=== PATIENT | male | born 1965 | race Caucasian/White ===

== ENCOUNTER → 2018-04-23 08:44 | Outpatient (CLI) | payer OTHER, SELFPAY ==
[2018-04-23 09:41] LABS: Hematocrit 47.5 % (40-54); Hemoglobin 15.4 g/dl (13.0-16.5); Mean Corp Hgb Conc 32.4 g/gl (32-36); Mean Corpuscular Volume 92.4 fL (80-94); Mean Platelet Vol. 9.6 fl (6.2-12.0); Platelet Count 274 K/mm3 (150-450); RBC Distribution Width CV 13.1 % (11.6-14.6); RBC Distribution Width SD 44.1 fl (35.1-43.9); Red Blood Count 5.14 M/mm3 (4.6-6.2)
[2018-04-23 09:42] LABS: Scan Indicated on CBC? Y/N NO
[2018-04-23 09:53] LABS: Cholesterol 251 mg/dL (200); High Density Lipoprotein 73 mg/dL; PSA,Total - Annual Screen 1.57 ng/mL (0.00-4.00); Triglycerides 139 mg/dL; Very Low Density Lipoprotein 28 mg/dL (5-40)
== END ==
PROVIDERS: Family Provider Family Medicine; PCP Family Medicine; Visit Provider Family Medicine
DX: N40.0 Benign prostatic hyperplasia without lower urinary tract symptoms (principal); E78.00 Pure hypercholesterolemia, unspecified
CPT/HCPCS: 36415; 80061; 84153; 85027; G0103

== ENCOUNTER 2018-06-05 08:33 | Day surgery (SDC) | payer OTHER, SELFPAY ==
[2018-06-05 09:02] VITALS: BP 135/88; PULSE 61; RESP 14; TEMP 36; O2SAT 99; BMI 28.5
--- NOTE | 2018-06-05 09:56 | PCM.OPRPT ---
Problem List (1) Screening for intestinal cancer Status: Acute Report of Operation Date of Procedure: 06/05/18 Pre-Operative Diagnosis: Screening for intestinal cancer Post-Operative Diagnosis: Sigmoid diverticulosis Surgery/Procedure Performed:: Colonoscopy Description of Surgical Findings:: Timeout and informed consent was obtained. 52-year-old gent was taken to the endoscopy suite. He underwent monitored anesthesia care. Year ago he had an upper GI bleed. He did have an attempted a colonoscopy but bowel prep was too poor for visualization. He presents at this time for planned screening examination. Digital rectal exam performed. Grade 2 internal and external hemorrhoids. 2+ smooth prostate. Flexible colonoscope inserted the rectum advanced was somewhat tortuous sigmoid colon extensively involved with diverticulosis. The scope was advanced to the descending colon transverse colon and over to the ascending colon. Transabdominal pressure was required to get the scope to go to the cecum. The cecum however was well achieved. The bowel prep was good. Excess fluid was aspirated free. The scope was withdrawn from the ascending and transverse and descending colon. Diverticulosis of the sigmoid colon noted. No evidence of acute inflammation. The scope was withdrawn to the rectum retroflex anorectal verge and grade 2 internal hemorrhoids noted. No active bleeding. Excess fluid and air was aspirated free the procedure was completed with the patient tolerating it well. Impression Sigmoid diverticulosis. No evidence for active disease. The patient had a previous attempted colonoscopy 1 year prior. Next recommended colonoscopy is in 10 years for screening. Cc: Dr. ROSITA Max Scope was inserted at 1002. The cecum was reached at 1010. The procedure was completed at 1018. José Miguel Medley M.D., F.A.C.S. Type of Anesthesia:: MAC Anesthesiologist: Mauro Diaz
--- NOTE | 2018-06-05 09:57 | PCM.HP.STD ---
Problem List (1) Screening for intestinal cancer Status: Acute History of Present Illness Date of Admission: 06/05/18 The patient is a 52 year old M who presented with GI bleeding approximately 1 year ago. He had a upper endoscopy demonstrating bleeding peptic ulcer which was remedied. He had a colonoscopy at that time but the bowel prep was too poor for adequate visualization. It is for this reason the patient presents today via our open access program to proceed with a colonoscopy for purposes of screening. He has no particular complaints and he is resumed having good health Past Medical History Allergies No Known Allergies Allergy (Verified 06/02/18 10:28) Home Medications: Ambulatory Orders Medication Instructions Recorded NK [NK] 06/02/18 Smoking Status: Never smoker - *Family History Sibling History Items: No pertinent history Review of Systems Constitutional: Denies: Anorexia HEENT: Denies: Difficulty Hearing Cardiovascular: Denies: Chest Pain, Claudication, Chest Pressure Respiratory: Denies: Cough Gastrointestinal: Denies: Abdominal Pain Neurological: Denies: Balance problems Psychiatric: Denies: Anxiety Endocrine: Denies: Change in Body Habitus VTE Information - Inpt Only VTE Present on Admission: No Patient Problems: Active and Suspected Problems Screening for intestinal cancer (Acute) - Physical Exam General: Alert, Oriented x3, Cooperative, No apparent distress HEENT: Atraumatic Oral: Moist Mucosa Neck: Supple Lungs: Clear to auscultation Cardiovascular: Regular rate, Regular Rhythm Abdomen: Bowel Sounds Present, Soft, Non Tender, Non-Distended Extremities: No clubbing Musculoskeletal: No Tenderness to Palpation of Joints or Extremities Neurological: Cranial nerves II-XII grossly intact Vital Signs Temp Pulse Resp BP Pulse Ox 96.8 F L 61 14 135/88 H 99 06/05/18 09:02 06/05/18 09:02 06/05/18 09:02 06/05/18 09:02 06/05/18 09:02 Oxygen Delivery Method Room Air Weight: 199 lb 1.239 oz Body Mass Index (BMI) 28.5 Assessment/Plan All Active Problems Screening for intestinal cancer (Acute) Leukocytosis, unspecified (Acute) GI bleed (Acute) I recommend a colonoscopy with possible biopsy or polypectomy is indicated. The patient has had an opportunity to ask and have questions answered. We will proceed was noted. José Miguel Medley M.D., F.A.C.S.
[2018-06-05 10:26] VITALS: BP 106/56; BP 135/88; PULSE 71; RESP 14; TEMP 36.5; O2SAT 96
[2018-06-05 10:30] VITALS: BP 112/74; BP 135/88; PULSE 69; RESP 16; O2SAT 97
[2018-06-05 10:35] VITALS: BP 115/63; BP 135/88; PULSE 62; RESP 16; O2SAT 96
[2018-06-05 10:40] VITALS: BP 120/78; BP 135/88; PULSE 55; RESP 16; TEMP 36.7; O2SAT 98
[2018-06-05 10:47] VITALS: BP 135/88
== END 2018-06-05 11:02 | disposition home or self-care (01) ==
LOC: EN 08:34 → AC 08:45
PROVIDERS: Family Provider Family Medicine; PCP Family Medicine; Visit Provider Surgery
PROC: 0DJD8ZZ Inspection of Lower Intestinal Tract, Via Natural or Artificial Opening Endoscopic (ICD-10-PCS; CPT 45378; principal; 2018-06-05 09:55)
DX: Z12.11 Encounter for screening for malignant neoplasm of colon (principal); K57.30 Diverticulosis of large intestine without perforation or abscess without bleeding; K64.8 Other hemorrhoids; K64.4 Residual hemorrhoidal skin tags; Z87.19 Personal history of other diseases of the digestive system
CPT/HCPCS: 45378; J7120

== ENCOUNTER → 2019-04-06 | Outpatient (CLI) | payer OTHER, SELFPAY ==
[2019-04-06 07:39] LABS: Anion Gap 4 (5-15); BUN 14 mg/dL (7-18); BUN/Creat Ratio 12.1 RATIO (10-20); Calcium,Total 9.2 mg/dL (8.5-10.1); Chloride 107 mmol/L (98-107); Cholesterol 210 mg/dL (200); Creatinine, Serum 1.16 mg/dL (0.70-1.30); EST Glomerular Filtration Rate 70 mL/min (>60); Est Glom Filt Rate - Afr Amer 85 mL/min (>60); Glucose 91 mg/dL (74-106); High Density Lipoprotein 68 mg/dL; PSA,Total - Annual Screen 1.45 ng/mL (0.00-4.00); Potassium 4.1 mmol/L (3.5-5.1); Sodium Level 139 mmol/L (136-145); Triglycerides 108 mg/dL; Very Low Density Lipoprotein 22 mg/dL (5-40)
[2019-04-06 08:24] LABS: Hematocrit 42.9 % (40-54); Mean Corp Hgb Conc 32.6 g/dL (32-36); Mean Corpuscular Hgb 29.7 pg (27.0-32.0); Mean Corpuscular Volume 90.9 fL (80-94); Mean Platelet Vol. 9.8 fl (6.2-12.0); Platelet Count 258 K/mm3 (150-450); RBC Distribution Width CV 13.2 % (11.6-14.6); RBC Distribution Width SD 43.9 fl (35.1-43.9); Red Blood Count 4.72 M/mm3 (4.6-6.2); White Blood Count 6.8 K/mm3 (4.4-11.0)
== END | disposition home or self-care (01) ==
PROVIDERS: Family Provider Family Medicine; PCP Family Medicine; Referring Provider Family Medicine; Visit Provider Family Medicine
DX: D62 Acute posthemorrhagic anemia (principal); N40.0 Benign prostatic hyperplasia without lower urinary tract symptoms; E78.00 Pure hypercholesterolemia, unspecified
CPT/HCPCS: 36415; 80048; 80061; 84153; 85027; G0103

== ENCOUNTER → 2020-05-26 08:11 | Outpatient (CLI) | payer SELFPAY ==
[2020-05-26 10:15] LABS: Absolute Lymphocyte Count 1.44 X10^3/uL (0.83-4.51); Absolute Neutrophil Count 4.3 X10^3/uL (2.0-7.7); Basophil# 0.05 X10^3/uL; Basophil% 0.7 % (0-1); Eosinophil# 0.07 X10^3/uL; Hematocrit 45.1 % (40-54); Hemoglobin 14.4 g/dL (13.0-16.5); Lymphocyte # 1.44 X10^3/ul (4.0); Lymphocyte % 20.9 % (19-41); Mean Corp Hgb Conc 31.9 g/dL (32-36); Mean Corpuscular Hgb 29.2 pg (27.0-32.0); Mean Corpuscular Volume 91.5 fL (80-94); Mean Platelet Vol. 9.5 fl (6.2-12.0); Monocyte# 0.92 X10^3/uL; Monocyte% 13.4 % (0-10); NRBC Flagged by Analyzer 0 % (0-5); Neutrophil # 4.31 X10^3/uL (2.7-7.7); Neutrophil % 62.5 % (47-70); Platelet Count 320 K/mm3 (150-450); RBC Distribution Width CV 13.3 % (11.6-14.6); RBC Distribution Width SD 45.1 fl (35.1-43.9); Red Blood Count 4.93 M/mm3 (4.6-6.2); White Blood Count 6.9 K/mm3 (4.4-11.0)
[2020-05-26 10:42] LABS: Anion Gap 5 (5-15); BUN 16 mg/dL (7-18); BUN/Creat Ratio 13.7 RATIO (10-20); Calcium,Total 9.1 mg/dL (8.5-10.1); Chloride 103 mmol/L (98-107); Cholesterol 250 mg/dL (200); Creatinine, Serum 1.17 mg/dL (0.70-1.30); EST Glomerular Filtration Rate 69 mL/min (>60); Est Glom Filt Rate - Afr Amer 83 mL/min (>60); Glucose 93 mg/dL (74-106); High Density Lipoprotein 73 mg/dL; PSA,Total - Annual Screen 1.49 ng/mL (0.00-4.00); Potassium 4.3 mmol/L (3.5-5.1); Sodium Level 138 mmol/L (136-145); Triglycerides 131 mg/dL; Very Low Density Lipoprotein 26 mg/dL (5-40)
== END ==
PROVIDERS: PCP Family Medicine; Referring Provider Family Medicine; Visit Provider Family Medicine
DX: Z00.00 Encounter for general adult medical examination without abnormal findings (principal)
CPT/HCPCS: 36415; 80048; 80061; 84153; 85025; G0103

== ENCOUNTER → 2023-10-07 | Outpatient (CLI) | payer SELFPAY ==
--- OUTSIDE RECORDS SUMMARY | 2023-10-07 10:11 | XMS RPT_ITS | CCD ---
Author Name Unknown Address [address] [place] [address] Organization [facility] Results Test Name Value Interpretation Reference Range Facil ity Summary Purpose Family History No Family History Records Found Advance Directives No Advanced Directives Records Found Additional Source Comments (unrecognized sect ion and content) No Status Records Found INFORMATION SOURCE (unrecogn ized section and content) FOR RECORDS PERTAINING TO PATIENTS WHO ARE OR HAVE BEEN ENROLLED IN A CHEMICAL DEPENDENCY/SUBSTANCEABUSE PROGRAM, SOME INFORMATION MAY BE OMITTED. This clinical summary was aggregated from multiple sources. Caution should be exercised in using it in the provision of clinical care. This summary normalizes information from multiple sources, and as a consequence, information in this document may materially change the coding, format and clinical context of patient data. In addition, data may be omitted in some cases. CLINICAL DECISIONS SHOULD BE BASED ON THE PRIMARY CLINICAL RECORDS. [employer] provides no warranty or guarantee of the accuracy or completeness of information in this document.
[2023-10-07 13:08] LABS: ALB/GLOB Ratio 1.1 RATIO (0.9-2.4); AST(SGOT) 18 U/L (15-37); Alanine Aminotransfer ALT/SGPT 31 U/L (16-61); Albumin, Serum 3.8 g/dL (3.2-5.0); Alkaline Phosphatase 63 U/L (45-117); Anion Gap 6 (5-15); BUN 18 mg/dL (7-18); BUN/Creat Ratio 16.5 RATIO (10-20); Calcium,Total 9.7 mg/dL (8.5-10.1); Chloride 107 mmol/L (98-107); Cholesterol 252 mg/dL (200); Creatinine, Serum 1.09 mg/dL (0.70-1.30); EST Glomerular Filtration Rate 74 mL/min (>60); Est Glom Filt Rate - Afr Amer 89 mL/min (>60); Globulin 3.5 g/dL (2.2-4.2); Glucose 91 mg/dL (74-106); High Density Lipoprotein 85 mg/dL; PSA,Total - Annual Screen 2.68 ng/mL (0.00-4.00); Potassium 4.8 mmol/L (3.5-5.1); Protein, Total 7.3 g/dL (6.4-8.2); Sodium Level 139 mmol/L (136-145); Triglycerides 145 mg/dL; Very Low Density Lipoprotein 29 mg/dL (5-40)
== END | disposition home or self-care (01) ==
PROVIDERS: PCP Family Medicine; Visit Provider Family Medicine
DX: Z00.00 Encounter for general adult medical examination without abnormal findings (principal); E78.00 Pure hypercholesterolemia, unspecified; N40.0 Benign prostatic hyperplasia without lower urinary tract symptoms
CPT/HCPCS: 36415; 80053; 80061; 84153; G0103

== ENCOUNTER → 2024-10-07 | Outpatient (CLI) | payer SELFPAY ==
[2024-10-07 10:20] LABS: Absolute Lymphocyte Count 1.58 X10^3/uL (0.83-4.51); Absolute Neutrophil Count 4.2 X10^3/uL (2.0-7.7); Basophil# 0.06 X10^3/uL; Basophil% 0.9 % (0-1); Eosinophil# 0.06 X10^3/uL; Eosinophils% 0.9 % (0-5); Hematocrit 46.7 % (40-54); Hemoglobin 14.9 g/dL (13.0-16.5); Lymphocyte # 1.58 X10^3/ul (0.83-4.51); Lymphocyte % 23.1 % (19-41); Mean Corp Hgb Conc 31.9 g/dL (32-36); Mean Corpuscular Hgb 28.7 pg (27.0-32.0); Monocyte# 0.84 X10^3/uL; Monocyte% 12.3 % (0-10); NRBC Flagged by Analyzer 0 % (0-5); Neutrophil # 4.24 X10^3/uL (2.7-7.7); Neutrophil % 61.9 % (47-70); Platelet Count 298 K/mm3 (150-450); RBC Distribution Width CV 12.9 % (11.6-14.6); RBC Distribution Width SD 42.6 fl (35.1-43.9); Red Blood Count 5.19 M/mm3 (4.6-6.2); White Blood Count 6.8 K/mm3 (4.4-11.0)
[2024-10-07 10:45] LABS: ALB/GLOB Ratio 1.2 RATIO (0.9-2.4); AST(SGOT) 24 U/L (15-37); Alanine Aminotransfer ALT/SGPT 34 U/L (16-61); Alkaline Phosphatase 62 U/L (45-117); Anion Gap 8 (5-15); BUN 13 mg/dL (7-18); BUN/Creat Ratio 11.6 RATIO (10-20); Calcium,Total 9.3 mg/dL (8.5-10.1); Chloride 103 mmol/L (98-107); Cholesterol 243 mg/dL (200); Creatinine, Serum 1.12 mg/dL (0.70-1.30); EST Glomerular Filtration Rate 71 mL/min (>60); Est Glom Filt Rate - Afr Amer 86 mL/min (>60); Globulin 3.2 g/dL (2.2-4.2); Glucose 98 mg/dL (74-106); High Density Lipoprotein 85 mg/dL; PSA,Total - Annual Screen 1.96 ng/mL (0.00-4.00); Potassium 4.1 mmol/L (3.5-5.1); Protein, Total 7.2 g/dL (6.4-8.2); Sodium Level 138 mmol/L (136-145); Triglycerides 141 mg/dL; Very Low Density Lipoprotein 28 mg/dL (5-40)
== END | disposition home or self-care (01) ==
PROVIDERS: PCP Family Medicine; Referring Provider Family Medicine; Visit Provider Family Medicine
DX: Z00.00 Encounter for general adult medical examination without abnormal findings (principal); E78.00 Pure hypercholesterolemia, unspecified; Z12.5 Encounter for screening for malignant neoplasm of prostate

== ENCOUNTER 2024-10-29 09:54 | Day surgery (SDC) | payer SELFPAY ==
[2024-10-29] VITALS (7 sets, daily range): BP systolic 120–150; BP diastolic 64–92; PULSE 60–81; RESP 12–18; TEMP 36.3–36.7; O2SAT 95–99; BMI 29.4
--- NOTE | 2024-10-29 10:07 | PCM.PRE.AN2 ---
ASA Classification* ASA Classification ASA Classification: 2 Assessment & Plan Anesthesia* Anesthesia Assessment Anesthesia Assessment: Discussed sedation and/or anesthesia options, risks, benefits, and alternatives with patient/parents/legal guardian/POA. Questions invited. The patient/parents/legal guardian/POA seems to understand and agrees to proceed with anesthesia plan. Reviewed the physical assessment, medical history, allergy history and patient home medications list prior to surgery/procedure/anesthetic and documented any changes. Performed airway and anesthesia risk assessments. Anesthesia Type Anesthesia Type: General Anesthesia Focused Assessment* Airway Assessment Mouth opens: >3 cm Mallampati Score: II Focused Labs Anesthesia Preop lab: CBC WBC 6.8 K/mm3 (4.4-11.0) 10/07/24 08:36 10/07/24 RBC 5.19 M/mm3 (4.6-6.2) 10/07/24 08:36 10/07/24 Hgb 14.9 g/dL (13.0-16.5) 10/07/24 08:36 10/07/24 Hct 46.7 % (40-54) 10/07/24 08:36 10/07/24 Plt Count 298 K/mm3 (150-450) 10/07/24 08:36 10/07/24 CHEMISTRY Potassium 4.1 mmol/L (3.5-5.1) 10/07/24 08:36 10/07/24 Sodium 138 mmol/L (136-145) 10/07/24 08:36 10/07/24 BUN 13 mg/dL (7-18) 10/07/24 08:36 10/07/24 Creatinine 1.12 mg/dL (0.70-1.30) 10/07/24 08:36 10/07/24 Glucose 98 mg/dL (74-106) 10/07/24 08:36 10/07/24 COAG PT 14.4 SECONDS (11.7-14.9) 04/18/17 11:35 04/18/17 Pre-Assessment Diagnosis/Proposed Procedure Planned Operative Procedure(s): OPEN UMBILCAL HERNIA REPAIR WITH MESH Anesthesia History 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 When Was Last Pacemaker Check QUESTION #4 FULL TEXT: You/Your Family Experience fever (hyperthermia) with Anesthesia Last Oral Intake Last Oral intake: Last Oral Intake NPO since Meds taken in AM with sips of water? Meds patient instructed to take am of surgery PONV PONV - military technician: PONV - military technician Female No 10/15/24 10:10 HX of Motion Sickness No 10/15/24 10:10 HX of N/V After Surgery No 10/15/24 10:10 Non-Smoker Yes 10/15/24 10:10 Duration of Surgery greater Yes 10/15/24 10:10 than 60 minutes Number of Risk Factors 2 10/15/24 10:10 PONV Score Moderate Risk 10/15/24 10:10 Height & Weight Height & Weight: Anesthesia: Height & Weight Height 5 ft 10 in 10/13/24 08:19 Respiratory Assessment Respiratory Assessment - military technician: Respiratory Tract Infection Hx - military technician Hx Respiratory Tract Infection No 10/15/24 10:10 STOP Sleep Apnea STOP Sleep Apnea - military technician: STOP Sleep Apnea - military technician Hx Hypertension No 10/15/24 10:10 Hx Sleep Apnea No 10/15/24 10:10 CPAP BIPAP Do you snore loudly (louder Yes 10/15/24 10:10 than talking or can be heard Do you often feel tired/ No 10/15/24 10:10 fatigued/ sleepy during daytime? Has anyone observed you stop No 10/15/24 10:10 breathing during sleep? STOP Results Negative 10/15/24 10:10 QUESTION #5 FULL TEXT : Do you snore loudly (louder than talking or can be heard through closed doors)? 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 Specify any problems Hx of Preganancy in last 3 N/A 10/15/24 10:10 Months Nurse Filling Out Transfusion DSCHRIBER 10/15/24 10:10 & Questions: Date: 10/15/24 10/15/24 10:10 Time: 10:12 10/15/24 10:10 Patient unable to answer at this time (ie. confused, unrespo /Reproduction History /Reproductive History - military technician: /Reproductive Hx- military technician Hx Now No 10/15/24 10:10 Gestational Age (in weeks): EDC: Hx Hx Para Hx Section SAB No 10/15/24 10:10 Active Medications Active Medications: Current Medications Generic Name Dose Route Start Last Admin Trade Name Freq PRN Reason Stop Dose Admin Sodium Chloride 1,000 mls @ 15 mls/hr 10/29/24 10:00 IV 11/03/24 23:19 .Q48H [facility] Protocol PFSH Medical History High cholesterol Non-smoker Umbilical hernia Laceration of left thigh without foreign body Screening for intestinal cancer Leukocytosis, unspecified GI bleed Home Medications ?Medication ?Instructions ?Recorded ?Last Taken ?Type ascorbic acid (vitamin C) 1,000 mg 1,000 mg PO DAILY 10/15/24 Unknown History tablet,extended release (C Complex) Allergy/AdvReac Type Severity Reaction Status Date / Time No Known Allergies Allergy Verified 10/15/24 10:09 Surgical History History of esophagogastroduodenoscopy (EGD) Hx of colonoscopy Social History Smoking Status: Never smoker alcohol intake: never Review of Systems (Anesthesia) ROS Narrative System reviewed and no additional complaints, except as documented.
--- NOTE | 2024-10-29 10:26 | EKG12_ITS ---
Test Reason : PRE OP Blood Pressure : */* mmHG Vent. Rate : 69 BPM Atrial Rate : 69 BPM P-R Int : 136 ms QRS Dur : 86 ms QT Int : 406 ms P-R-T Axes : 9 3 1 degrees QTcB Int : 435 ms Normal sinus rhythm Normal ECG When compared with ECG of 18-Apr-2017 11:09, No significant change was found Confirmed by Bhaskar Johnson ([id number]), film editor BHUPENDRA CARROLL ([id number]) on 11/01/2024 1:48:47 PM Referred By: Chi Maharaj Confirmed By: Bhaskar Johnson
[2024-10-29] MEDS: 0.9% Normal Saline (1000mL) 1,000 ML 15 ML IV (10:34)
--- NOTE | 2024-10-29 10:40 | HP.PCM_ITS ---
HPI - General General Date of Admission: 10/29/24 Date of Service: 10/29/24 HPI Narrative HANNAH CACERES, is a 59 M who presents today for elective umbilical hernia repair surgery. He was recently seen in the office for this hernia. This was causing him increasing discomfort. I offered him umbilical hernia repair surgery. This was fairly small and I did not feel that mesh would be necessary. He wished to proceed. He presents today for surgery [facility] Medical History High cholesterol Non-smoker Umbilical hernia Laceration of left thigh without foreign body Screening for intestinal cancer Leukocytosis, unspecified GI bleed Home Medications ?Medication ?Instructions ?Recorded ?Last Taken ?Type ascorbic acid (vitamin C) 1,000 mg 1,000 mg PO DAILY 0 10/15/24 Unknown History tablet,extended release (C Complex) Allergy/AdvReac Type Severity Reaction Status Date / Time No Known Allergies Allergy Verified 10/15/24 10:09 Surgical History History of esophagogastroduodenoscopy (EGD) Hx of colonoscopy Social History Smoking Status: Never smoker alcohol intake: never Vital Signs Vital Signs Vital Signs: 10/29/24 10:15 10/29/24 10:15 Temperature 97.6 F L Temperature Source Temporal Pulse Rate 69 Respiratory Rate 14 Respiratory Pattern Normal Blood Pressure 150/92 H Blood Pressure Mean 111 Blood Pressure Source Monitor Blood Pressure Position Semi-Fowlers Blood Pressure Location Left Arm Pulse Ox 99 Oxygen Delivery Method Room Air Weight Weight: 205 lb 0.478 oz Body Mass Index (BMI) 29.4 Physical Exam Narrative He is alert and oriented x 3. He is in no acute distress. Abdomen is soft nontender nondistended. His umbilical hernia appears essentially unchanged from when he was last seen in my office. No signs of incarceration or strangulation Assessment & Plan Assessment/Plan (1) Umbilical hernia: PLAN: Plan The patient is a 59-year-old male with an umbilical hernia. I have offered him a umbilical hernia repair surgery. We discussed the details of the planned procedure including the risks benefits and alternatives. He wishes to proceed. This will take place shortly
[2024-10-29] MEDS: Lidocaine 1% (30 ml sdv) 30 ML Vial (11:40)
[2024-10-29] MEDS: Bupiv/Epi 0.25% 30 ML Vial (11:41)
--- NOTE | 2024-10-29 12:09 | PCM.POST.ANE ---
Anesthesia: Postop Eval I Current Vital Signs Temperature: 98 F Pulse Rate: 81 Blood Pressure: 120/64 Respiratory Rate: 18 Pulse Ox: 95 Assessment Airway patent: Yes Spontaneous unlabored respirations: Yes nausea: No Vomiting: No Anesthesia Complication: No Fluid Hydration Crystalloid volume administer (ml): 1,100 Total IV fluid infused: 1,100 Progress Note Anesthesia document: Postop Eval 1 completed: Yes
--- NOTE | 2024-10-29 12:15 | DCINST_ITS ---
Discharge Instructions Diet Discharge Diet: Light diet - advance as tolerated Activity Discharge Activity: Return to Normal Activity and May Shower May shower in (days): 1 Ice area for (Minutes): 30 Lifting Restrictions: No lifting over 20 pounds for 6 weeks Dressing / Incision Call your doctor if your incision/area has: Continuous Slow Oozing, Sudden In creased Bleeding, Increased Pain/ Swelling, Increased Redness, Foul Smelling Discharge and Swelling at the incision site Call your doctor if you observe: Fever of 101 or Higher Change Dressing in: 1 day Cleanse incision/area with: Soap & Water Additional Dressing/Incision Instructions:: Remove covering dressing prior to first shower. Wear abdominal binder as needed for comfort Follow Up Care Please Follow Up With: Chi Maharaj MD When: 2 weeks Test Results: Test results from this visit will be discussed in further detail at your follow- up appointment, if applicable. Discharge Plan Admission Primary Reason for Your Visit: Umbilical hernia repair surgery Attending Provider: Chi Maharaj Primary Care Provider: Naresh Villegas Instructions Print Language: Maltese Discharge Orders/Prescriptions Prescriptions: New oxycodone-acetaminophen [Percocet] 5-325 mg tablet 1 tab PO Q8H PRN (Reason: pain) 3 Days Qty: 7 0RF Continued C Complex 1,000 mg tablet extended release 1,000 mg PO DAILY Referrals / Follow Up: Naresh Villegas MD [Primary Care Provider] - Disposition Disposition (needs filled in before D/C Order can be placed): Home, Self Care
--- NOTE | 2024-10-29 12:21 | PCM.OPRPT ---
Problems Associated Problem List Diagnoses (1) Umbilical hernia: Procedures Digestive 40xxx-49xxx: 34238 RPR AA HRN 1ST < 3 CM RDC Operative Report (Standard) Operative Information Date of Procedure: 10/29/24 Pre-Operative Diagnosis: Umbilical hernia Post-Operative Diagnosis: Umbilical hernia Surgery/Procedure Performed: Open umbilical hernia repair without mesh typing section chief: Yes Hand Tool Filer: Alan Orlando Tasks completed by first assistant: Closing and Retracting Additional registered medical assistant?: No Type of Anesthesia: Local and MAC RN Documented Start/Stop Times: Operation Date: 10/29/24 13:00 Case Time Into Pre-Op 10/29/24 09:57 Out of Pre-Op 10/29/24 11:06 Anesthesia Start 10/29/24 11:16 Into Room 10/29/24 11:16 Procedure Start 10/29/24 11:33 Procedure End 10/29/24 12:05 Anesthesia End 10/29/24 12:07 Out of Room 10/29/24 12:07 Into Recovery 10/29/24 12:11 Procedure Start Time: 11:33 Procedure Stop Time: 12:05 Select all DRAINS/GRAFTS/IMPLANTS that apply: None Special Medications: None Estimated Blood Loss: 1 mL Fluids Replaced: None Specimen collected: No Description of surgery: The patient is a 59-year-old male who is recently seen through the office with a small symptomatic umbilical hernia. This was causing him some increasing discomfort. I offered him umbilical hernia repair surgery. Since the defect was so small, I felt that a primary repair without mesh was appropriate. We discussed the details of the planned surgery as well as the risks, benefits and alternatives. He wished to proceed. The patient was brought to the operating room today following informed consent. No antibiotics were indicated. He was placed supine on the operative table with arms comfortably outstretched on arm boards. A MAC anesthesia was induced. Once adequately sedated the abdomen send prepped and draped in the usual sterile manner. Following a timeout, a marking pen was used to rosalio out a small curvilinear incision around the superior aspect of the umbilicus. Next local anesthetic was infiltrated into the vicinity. A #15 blade was then used to make the skin incision. Bovie electrocautery was then used to dissect down through subtenons tissue down to the level of the fascia. Once at this level I used finger dissection to dissect partially around the umbilicus. This was completed using a Lyndsey clamp. This was used to retract the skin and the umbilicus up and off of the hernia sac. The hernia sac was excised off of the overlying skin using #15 blade. The hernia sac was then excised using Bovie electrocautery thus allowing the fascial edges to be cleared. The fascial defect was small measuring approximately 7 to 8 mm. This contained a small amount of fat. This fat was excised thus freeing it from the surrounding attachments to the fascia. Once this was performed and the fascial edges were cleared 0 Nurolon was then utilized to close the small fascial defect. 4-5 interrupted sutures were then placed into the fascia to close the defect. This closed the defect nicely without any undue tension. The skin of the umbilicus was then reaffixed to the underlying fascia using 3-0 Vicryl. 3-0 Vicryl was then used to reapproximate the subdermal layer. Finally, 4-0 Vicryl was used to close the skin incision. Skin glue was applied as dressing. Once this was dry, sterile cottonball and an OpSite dressing was then applied. Patient was awakened from anesthesia. An abdominal binder was snugly placed around the abdomen to provide support and compression. Patient was then placed onto the transport cart and taken to PACU in good condition. A JERMAN was utilized as a assistant professor of biology. His role included skin retraction as well as assistance with skin closure and dressing placement Surgical Findings: 8 mm fascial defect Complications Complications: No Admit VTE Documentation VTE Present on Admission: No VTE Mechan Device Prophylaxis: SCD's VTE Pharm Prophylaxis ordered?: No Reason prophylaxis not ordered: Treatment Not Indicated
--- NOTE | 2024-10-29 13:25 | POSTOPAN2_ITS ---
Anesthesia Postop Eval I Sum Postop Eval Completion status Anesthesia document: Postop Eval 1 completed: Yes Anesthesia Postop Eval I Summary Anesthesia Postop Eval I Summary: Anesthesia Postop Eval I: Assessment Summary Airway patent Yes 10/29/24 12:09 [email or web address] [email or web address] Spontaneous unlabored Yes 10/29/24 12:09 [email or web address] [email or web address].[email or web address] respirations Mental status nausea No 10/29/24 12:09 TURNAROUND [email or web address].CSIR Vomiting No 10/29/24 12:09 [email or web address] [email or web address].CSIR Anesthesia Postop Eval I: Fluid Summary Crystalloid volume administer 1,100 10/29/24 12:09 [email or web address] [email or web address].CSIR (ml) Colloids volume administered ( ml) Blood Product volume administered (ml) Total IV fluid infused 1,100 10/29/24 12:09 TURNAROUND [email or web address].CSIR Anesthesia Postop Eval I: Summary Notes Anesthesia Complication No 10/29/24 12:09 TURNAROUND [email or web address].CSIR Anesthesia Complication Comment: Post-operative progress note Anesthesia: Postop Eval II Evaluation Mental status: Awake Pain Level: 0 nausea: No Vomiting: No
--- NOTE | 2024-10-29 13:25 | PCM.POSTANE2 ---
Anesthesia Postop Eval I Sum Postop Eval Completion status Anesthesia document: Postop Eval 1 completed: Yes Anesthesia Postop Eval I Summary Anesthesia Postop Eval I Summary: Anesthesia Postop Eval I: Assessment Summary Airway patent Yes 10/29/24 12:09 CHRONIC [email or web address] Spontaneous unlabored Yes 10/29/24 12:09 CHRONIC CARE [email or web address].CSIR respirations Mental status nausea No 10/29/24 12:09 CHRONIC CARE [email or web address].CSIR Vomiting No 10/29/24 12:09 CHRONIC CARE [email or web address] Anesthesia Postop Eval I: Fluid Summary Crystalloid volume administer 1,100 10/29/24 12:09 CHRONIC CARE [email or web address].CSIR (ml) Colloids volume administered ( ml) Blood Product volume administered (ml) Total IV fluid infused 1,100 10/29/24 12:09 CHRONIC CARE [email or web address].CSIR Anesthesia Postop Eval I: Summary Notes Anesthesia Complication No 10/29/24 12:09 CHRONIC CARE [email or web address].CSIR Anesthesia Complication Comment: Post-operative progress note Anesthesia: Postop Eval II Evaluation Mental status: Awake Pain Level: 0 nausea: No Vomiting: No
== END 2024-10-29 13:06 | disposition home or self-care (01) ==
LOC: SDC 09:54 → AC 09:56
PROVIDERS: PCP Family Medicine; Referring Provider Surgery; Visit Provider Surgery
PROC: (CPT 49591; principal; 2024-10-29 12:45)
DX: K42.9 Umbilical hernia without obstruction or gangrene (principal); E78.00 Pure hypercholesterolemia, unspecified
CPT/HCPCS: 49591; 93005; J2405